=== PATIENT | female | born 1980 | race African-American/Black ===

== ENCOUNTER 2017-11-24 10:14 | Emergency (ER) | payer SELFPAY ==
--- NOTE | 2017-11-24 10:44 | ER Document Report ---
ED Medical Screen (RME) - General Chief Complaint: Vag Bleeding, +preg <12wks Stated Complaint: VAGINAL BLEEDING/PAIN Time Seen by Provider: 11/24/17 10:41 Notes: RME DISCLOSURE I have seen this patient as part of a Rapid Medical Evaluation and, if applicable, placed any initially appropriate orders. The patient will be seen and fully evaluated, including a full history and physical exam, by a provider ( in Main ED or Fast Track) when a room becomes available. 37-year-old female (2 prior stillborns) here with complaints of lower abdominal pain and vaginal bleeding ongoing for the past few days. She states that this all started after she had sex. The pain is intermittent. She does not really have any pain right now, she reports. She denies any dysuria frequency hesitancy. She reports a positive home test late October. She is here because she is worried about a possible miscarriage or ectopic. EXAM No tenderness on exam TRAVEL OUTSIDE OF THE [place] IN LAST 30 DAYS: No - Related Data Allergies/Adverse Reactions: No Known Allergies Allergy (Verified 11/24/17 10:15) Past Medical History - General Last Menstrual Period: 10/12/2017 - Social History Chew tobacco use (# tins/day): No Frequency of alcohol use: None Drug Abuse: None Endocrine Medical History: Denies: Hx Diabetes Mellitus Type 2 Renal/ Medical History: Denies: Hx Peritoneal Dialysis - Immunizations Immunizations up to date: Yes Hx Diphtheria, Pertussis, Tetanus Vaccination: No Physical Exam - Vital signs Vitals: Temp Pulse Resp BP Pulse Ox 98.8 F 81 16 161/98 H 100 11/24/17 10:18 11/24/17 10:18 11/24/17 10:18 11/24/17 10:18 11/24/17 10:18 Course - Vital Signs Vital signs: Temp Pulse Resp BP Pulse Ox 98.1 F 81 16 161/98 H 100 11/24/17 10:37 11/24/17 10:18 11/24/17 10:37 11/24/17 10:37 11/24/17 10:37
[2017-11-24] MEDS ORDERED: IBUPROFEN 800 MG TABLET PO ONE (11:15)
--- NOTE | 2017-11-24 11:16 | ER Document Report ---
HPI - HPI Patient complains to provider of: Pelvic pain, vaginal bleeding Onset/Duration: Gradual Quality of pain: Cramping Pain Level: 5 Context: Patient states that she developed vaginal bleeding over the past 3 days with pelvic pain for the past 2 days. Patient states that she has had both positive and negative home tests and wants to confirm whether or not she is . Patient denies any urinary symptoms. Patient denies any concerns about possible sexually transmitted infection Associated Symptoms: Other - Pelvic pain. denies: Fever, Vomiting Exacerbated by: Denies Relieved by: Denies Similar symptoms previously: Yes Recently seen / treated by doctor: No - ROS ROS below otherwise negative: Yes Systems Reviewed and Negative: Yes All other systems reviewed and negative - CONSTITUTIONAL Constitutional: DENIES: Fever - GASTROINTESTINAL Gastrointestinal: REPORTS: Abdominal Pain. DENIES: Nausea - URINARY Urinary: DENIES: Dysuria, Urgency, Frequency - REPRODUCTIVE LMP: 10/12/2016 Reproductive: REPORTS: Abnormal bleeding / discharge. DENIES: : - MUSCULOSKELETAL Musculoskeletal: DENIES: Back Pain - DERM Skin Color: Normal Skin Problems: None Past Medical History - General Information source: Patient Last Menstrual Period: 10/12/2017 - Social History Smoking Status: Current Some Day Smoker Chew tobacco use (# tins/day): No Smoking Education Provided: Yes Frequency of alcohol use: None Drug Abuse: None Occupation: [employer] Family History: Hypertension Patient has suicidal ideation: No Patient has homicidal ideation: No - Medical History Medical History: Negative Endocrine Medical History: Denies: Hx Diabetes Mellitus Type 2 Renal/ Medical History: Denies: Hx Peritoneal Dialysis Surgical Hx: Negative - Immunizations Immunizations up to date: Yes Hx Diphtheria, Pertussis, Tetanus Vaccination: No Vertical Provider Document - CONSTITUTIONAL Agree With Documented VS: Yes Exam Limitations: No Limitations General Appearance: WD/WN, No Apparent Distress - INFECTION CONTROL TRAVEL OUTSIDE OF THE [place] IN LAST 30 DAYS: No - HEENT HEENT: Atraumatic, Normocephalic - NECK Neck: Normal Inspection, Supple - RESPIRATORY Respiratory: Breath Sounds Normal, No Respiratory Distress O2 Sat by Pulse Oximetry: 100 - CARDIOVASCULAR Cardiovascular: Regular Rate, Regular Rhythm, No Murmur - GI/ABDOMEN Gastrointestinal: Abdomen Soft, Abdomen Non-Tender, No Organomegaly, Normal Bowel Sounds - BACK Back: Normal Inspection. negative: CVA Tenderness-Right, CVA Tenderness-Left - MUSCULOSKELETAL/EXTREMETIES Musculoskeletal/Extremeties: BIANKA BRAN - NEURO Level of Consciousness: Awake, Alert, Appropriate Motor/Sensory: No Motor Deficit - DERM Integumentary: Warm, Dry, No Rash Course - Re-evaluation Re-evalutation: 11/24/17 11:44 Patient with negative test, patient does have hematuria noted on urinalysis. Suspect this is likely contaminant from the vaginal bleeding. Patient declines pelvic examination or STI testing. Patient denies any concerns about UTI. - Vital Signs Vital signs: Temp Pulse Resp BP Pulse Ox 98.1 F 81 16 161/98 H 100 11/24/17 10:37 11/24/17 10:18 11/24/17 10:37 11/24/17 10:37 11/24/17 10:37 - Laboratory Laboratory results interpreted by me: 11/24/17 11:44 Labs- Entire Visit 11/24/17 10:45 Urine Color YELLOW Urine Appearance CLEAR Urine pH 5.0 Ur Specific [place] 1.023 Urine Protein NEGATIVE Urine Glucose (UA) NEGATIVE Urine Ketones TRACE H Urine Blood MODERATE H Urine Nitrite NEGATIVE Urine Bilirubin NEGATIVE Urine Urobilinogen 2.0 H Ur Leukocyte Esterase NEGATIVE Urine WBC (Auto) 1 Urine RBC (Auto) 1 Urine Bacteria (Auto) TRACE Squamous Epi Cells Auto 4 Urine Mucus (Auto) MOD Urine Ascorbic Acid 20 H Urine HCG, Qual NEGATIVE Discharge - Discharge Clinical Impression: Elevated blood pressure reading, Dysmenorrhea Condition: Stable Disposition: HOME, SELF-CARE Instructions: Anti-Inflammatory Medication ([facility]), Dysmenorrhea ([facility]) Additional Instructions: Return immediately for any new or worsening symptoms Followup with your primary care provider, call tomorrow to make a followup appointment Follow-up with a grit removal operator for recheck Forms: Elevated Blood Pressure, Smoking Cessation Education, Return to Work Referrals: MARSHAL ALLEN MD [Primary Care Provider] - Follow up as needed
[2017-11-24 11:18] LABS: APPEARANCE,URINE CLEAR; BILIRUBIN,URINE NEGATIVE (NEGATIVE); COLOR,URINE YELLOW; GLUCOSE, URINE NEGATIVE (NEGATIVE); KETONES,URINE TRACE mg/dL (NEGATIVE)
[2017-11-24 11:19] LABS: LEUKOCYTE ESTERASE,URINE NEGATIVE (NEGATIVE); NITRITE,URINE NEGATIVE (NEGATIVE); PROTEIN,URINE NEGATIVE (NEGATIVE); URINE SPECIFIC GRAVITY 1.023
[2017-11-24 12:07] VITALS: BP 142/87
== END 2017-11-24 12:07 | disposition home or self-care (01) ==
LOC: ER 10:14
DX: R03.0 Elevated blood-pressure reading, without diagnosis of hypertension (principal); N94.6 Dysmenorrhea, unspecified; R10.2 Pelvic and perineal pain; F17.200 Nicotine dependence, unspecified, uncomplicated
CPT/HCPCS: 81001; 81025; 87086; 87088; 87186; 99284

== ENCOUNTER 2018-02-13 21:52 | Emergency (ER) | payer OTHER ==
[2018-02-13 22:34] VITALS: BP 145/99
[2018-02-13] MEDS ORDERED: CYCLOBENZAPRINE HCL 10 MG TABLET PO ONE (23:19)
[2018-02-13] MEDS ORDERED: IBUPROFEN 800 MG TABLET PO ONE (23:19)
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
== END 2018-02-13 23:30 | disposition home or self-care (01) ==
LOC: ER 21:52
DX: M54.2 Cervicalgia (principal); R51 Headache; V43.02XA Car driver injured in collision with other type car in nontraffic accident, initial encounter; Y92.481 Parking lot as the place of occurrence of the external cause; E11.9 Type 2 diabetes mellitus without complications
CPT/HCPCS: 99283

== ENCOUNTER 2019-02-06 03:26 | Emergency (ER) | payer BC, OTHER ==
[2019-02-06 03:37] VITALS: BP 166/103
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
== END 2019-02-06 04:45 | disposition home or self-care (01) ==
LOC: ER 03:26
DX: N89.8 Other specified noninflammatory disorders of vagina (principal); I10 Essential (primary) hypertension
CPT/HCPCS: 99283

== ENCOUNTER 2019-03-28 05:25 | Emergency (ER) | payer BC ==
--- NOTE | 2019-03-28 06:24 | ER Document Report ---
ED General - General Chief Complaint: Vaginal Bleeding Stated Complaint: VAGINAL BLEEDING Time Seen by Provider: 03/28/19 06:07 Primary Care Provider: MARSHAL ALLEN MD [Primary Care Provider] - Follow up as needed Mode of Arrival: Ambulatory Information source: Patient, [facility] Records Notes: 38-year-old female with hypertension presents with complaint of pain with urination and vaginal bleeding. Patient states she is concerned because her bleeding is very light. Her last normal menstrual period was January 25, 2019. She states she is approximately 3 weeks late and started bleeding yesterday very lightly. Patient also complaining of right flank pain that she describes as intermittent. She denies any injury. She states she did take a home test which was negative. Patient is sexually active. She denies any vaginal discharge. She states she does use condoms. TRAVEL OUTSIDE OF THE [place] IN LAST 30 DAYS: No - HPI Onset: Yesterday Onset/Duration: Gradual, Persistent Quality of pain: Pressure Severity: Mild Associated symptoms: denies: Chest pain, Fever, Nausea, Vomiting, Shortness of breath Exacerbated by: Denies Relieved by: Denies Similar symptoms previously: No Recently seen / treated by doctor: No - Related Data Allergies/Adverse Reactions: No Known Allergies Allergy (Verified 03/28/19 05:28) Past Medical History - General Information source: Patient - Social History Smoking Status: Never Smoker Frequency of alcohol use: None Drug Abuse: None Lives with: Family Family History: Reviewed & Not Pertinent, Hypertension Patient has suicidal ideation: No Patient has homicidal ideation: No - Past Medical History Cardiac Medical History: Reports: Hx Hypertension Endocrine Medical History: Denies: Hx Diabetes Mellitus Type 2 Renal/ Medical History: Denies: Hx Peritoneal Dialysis - Immunizations Immunizations up to date: Yes Hx Diphtheria, Pertussis, Tetanus Vaccination: No Review of Systems - Review of Systems Notes: REVIEW OF SYSTEMS: CONSTITUTIONAL : Denies fever, chills, or sweats. Denies recent illness. Denies weight loss, recent hospitalizations. EENT: Denies visual changes, eye pain. Denies sore throat, oral lesions, difficulty swallowing. CARDIOVASCULAR: Denies chest pain. Denies palpitations. Denies lower extremity edema. RESPIRATORY: Denies cough. Denies shortness of breath, wheezing. GASTROINTESTINAL: Denies abdominal pain or distention. Denies nausea, vomiting, or diarrhea. Denies blood in vomitus, stools, or per rectum. Denies black, tarry stools. Denies constipation. GENITOURINARY: Denies difficulty urinating, frequency, blood in urine, or vaginal discharge. MUSCULOSKELETAL: Denies neck pain or stiffness. Denies joint pain or swelling. SKIN: Denies rash, lesions or sores. HEMATOLOGIC : Denies easy bruising or bleeding. LYMPHATIC: Denies swollen glands. NEUROLOGICAL: Denies confusion or altered mental status. Denies loss of consciousness. Denies dizziness or lightheadedness. Denies headache. Denies weakness or paralysis. Denies problems difficulty with ambulation, slurred speech. Denies sensory loss, numbness, or tingling. Denies seizures. PSYCHIATRIC: Denies anxiety or stress. Denies depression, suicidal ideation, or homicidal ideation. Denies visual or auditory hallucinations. Physical Exam - Vital signs Vitals: Temp Pulse BP Pulse Ox 97.8 F 72 166/107 H 99 03/28/19 05:03/28/19 05:03/28/19 05:03/28/19 05:28 - Notes Notes: PHYSICAL EXAMINATION: GENERAL: Well-appearing, well-nourished and in no acute distress. HEAD: Atraumatic, normocephalic. EYES: Pupils equal round and reactive to light, extraocular movements intact, conjunctiva are normal. ENT: Nares patent, oropharynx clear without exudates. Moist mucous membranes. NECK: Normal range of motion, supple without lymphadenopathy LUNGS: Breath sounds clear to auscultation bilaterally and equal. No wheezes rales or rhonchi. HEART: Regular rate and rhythm without murmurs ABDOMEN: Soft, nontender, nondistended abdomen. No guarding, no rebound. No masses appreciated. Female : deferred Musculoskeletal: Normal range of motion, no pitting or edema. No cyanosis. NEUROLOGICAL: Cranial nerves grossly intact. Normal speech, normal gait. Normal sensory, motor exams PSYCH: Normal mood, normal affect. SKIN: Warm, Dry, normal turgor, no rashes or lesions noted. Course - Re-evaluation Re-evalutation: Temp Pulse Resp BP Pulse Ox 97.8 F 72 166/107 H 99 03/28/19 05:03/28/19 05:03/28/19 05:03/28/19 05:28 Laboratory 03/28/19 06:17 Urine Color YELLOW Urine Appearance CLEAR Urine pH 5.0 Ur Specific Seale 1.019 Urine Protein NEGATIVE Urine Glucose (UA) NEGATIVE Urine Ketones NEGATIVE Urine Blood SMALL H Urine Nitrite NEGATIVE Urine Bilirubin NEGATIVE Urine Urobilinogen NEGATIVE Ur Leukocyte Esterase NEGATIVE Urine WBC (Auto) 1 Urine RBC (Auto) 1 Squamous Epi Cells Auto 3 Urine Mucus (Auto) MOD Urine Ascorbic Acid NEGATIVE Urine HCG, Qual NEGATIVE 03/28/19 06:24 38-year-old female presents with dysuria, vaginal bleeding. Last normal menstrual period was January 25, 2019. Patient did take a home test which was negative. She is concerned because she started bleeding yesterday and it is "light". Patient's dysuria also started yesterday. Vital signs reviewed and within normal limits. Patient does not appear toxic or dehydrated. She is in no acute distress. Patient has a benign abdominal exam. 03/28/19 06:58 Patient's urinalysis is not consistent with UTI. Patient's test is negative. I have advised her to follow-up with her FAMILY PRACTICE MD regarding her concern for early menopause and changes in her menstrual cycle. Patient was evaluated and treated as appropriate for the patient's presenting symptoms and complaint, with consideration of any critical or life threatening conditions that may be associated with their obtained history and exam as noted above. All results were discussed with patient. Patient provided the opportunity to ask questions, and express concerns. Patient was educated on treatments based on their presumed diagnosis as noted above. At this time we will discharge the patient with return precautions and follow-up recommendations. Verbal discharge instructions given a the bedside. Medication warnings reviewed. Patient is in agreement with this plan and has verbalized understanding of return precautions. After careful consideration I feel that that patient can be safely discharged from the emergency department, they were advised to followup with a primary care physician in 2-3 days. Dictation on this chart was performed using voice recognition software and may result in unintended grammatical, spelling, syntax or errors. 03/28/19 06:59 - Vital Signs Vital signs: Temp Pulse Resp BP Pulse Ox 97.8 F 72 166/107 H 99 03/28/19 05:28 03/28/19 05:28 03/28/19 05:28 03/28/19 05:28 - Laboratory Laboratory results interpreted by me: 03/28/19 06:17 Urine Blood SMALL H Discharge - Discharge Clinical Impression: Dysuria, Vaginal bleeding Hypertension Qualifiers: Hypertension type: unspecified Qualified Code(s): I10 - Essential (primary) hypertension Condition: Good Disposition: HOME, SELF-CARE Instructions: Vaginal Bleeding ([facility]) Additional Instructions: Your lab work today did not show any evidence of urinary tract infection or . Please follow-up with your FAMILY PRACTICE MD for your concerns regarding the change in your cycle. Please return to the emergency department if you experience abdominal pain, fever greater than 101 or any other symptoms concerning to you. A urine culture was sent due to your symptoms and you will be called if you require an antibiotic. Regarding Blood Pressure: Your blood pressure was noted to be greater than 120/80 at least once in the emergency room today. It is recommended that you follow-up with her primary care physician in the next week for repeat blood pressure check. The Centers for Medicare and Medicaid Services has specific recommendations regarding a person's blood pressure. There are several lifestyle modifications that are recommended in order to help lower your blood pressure. These include: Quitting smoking if you smoke. Reducing the amount of sodium in your diet. Getting regular exercise Limiting alcohol to no more than 2 drinks a day for men and one drink a day for women. Eating a healthy diet, including more fruits and vegetables, low fat dairy products, less saturated and total fat. Losing weight if you are overweight. FOLLOW-UP: Call your doctor's office and let them know your blood pressure was elevated and you were advised to get your blood pressure checked in the above time-line. If you are unable to get into your doctor's office in this time period, you can follow-up with a new physician (I have left the numbers below for a few primary care doctors affiliated with this [facility]) or return to the ER. PRIMARY CARE PHYSICIANS: Dr. Shayy Omalley [address], [place] [address] [phone] Dr Jeff Address: [address] , [place] [address] Dr Allen Address: [address] , [place] [address] Forms: Elevated Blood Pressure Referrals: MARSHAL ALLEN MD [Primary Care Provider] - Follow up in 3-5 days
[2019-03-28 06:30] LABS: APPEARANCE,URINE CLEAR; BILIRUBIN,URINE NEGATIVE (NEGATIVE); COLOR,URINE YELLOW; GLUCOSE, URINE NEGATIVE (NEGATIVE); KETONES,URINE NEGATIVE (NEGATIVE); LEUKOCYTE ESTERASE,URINE NEGATIVE (NEGATIVE); NITRITE,URINE NEGATIVE (NEGATIVE); PROTEIN,URINE NEGATIVE (NEGATIVE); URINE SPECIFIC GRAVITY 1.019; UROBILINOGEN,URINE NEGATIVE mg/dL (<2.0)
[2019-03-28 07:14] VITALS: BP 145/95
== END 2019-03-28 07:14 | disposition home or self-care (01) ==
LOC: ER 05:25
DX: N93.9 Abnormal uterine and vaginal bleeding, unspecified (principal); R30.0 Dysuria; I10 Essential (primary) hypertension; R10.9 Unspecified abdominal pain
CPT/HCPCS: 36415; 81001; 81025; 87086; 99284

== ENCOUNTER 2020-09-04 05:25 | Emergency (ER) | payer BC, OTHER ==
--- NOTE | 2020-09-04 05:58 | ER Document Report ---
ED Dizziness/Weakness - General Chief Complaint: Dizziness Stated Complaint: DIZZY Time Seen by Provider: 09/04/20 05:45 Primary Care Provider: MARSHAL ALLEN MD [Primary Care Provider] - Follow up in 1 week Notes: Patient is a 39-year-old female who presents emergency department with a chief complaint of dizziness. Patient states that her symptoms started about 2 days ago. States that she also is having a hard time sleeping. She attempted to take NyQuil, but did not successfully fall asleep. Patient states that she has not had this before. She was diagnosed with hypertension and was instructed to start blood pressure medication, but the patient has not started the medication. Patient is supposed to be taking losartan/hydrochlorothiazide. TRAVEL OUTSIDE OF THE [place] IN LAST 30 DAYS: No - Related Data Allergies/Adverse Reactions: No Known Allergies Allergy (Verified 03/28/19 05:28) Past Medical History - Social History Smoking Status: Never Smoker Family History: Reviewed & Not Pertinent, Hypertension - Past Medical History Cardiac Medical History: Reports: Hx Hypertension Endocrine Medical History: Denies: Hx Diabetes Mellitus Type 2 Renal/ Medical History: Denies: Hx Peritoneal Dialysis - Immunizations Immunizations up to date: Yes Hx Diphtheria, Pertussis, Tetanus Vaccination: No Review of Systems - Review of Systems Notes: REVIEW OF SYSTEMS: CONSTITUTIONAL : Denies recent illness. Denies recent unintentional weight loss. Denies fever, chills, or sweats. EENT: Denies eye, ear, throat, or mouth pain, discharge, or symptoms. Denies nasal or sinus congestion. CARDIOVASCULAR: Denies chest pain. RESPIRATORY: Denies shortness of breath, cough, congestion, difficulty breathing, or wheezing. GASTROINTESTINAL: Denies nausea, vomiting, and diarrhea. Denies abdominal pain. Denies constipation. GENITOURINARY: Denies difficulty urinating, burning, blood in urine, urgency or frequency. MUSCULOSKELETAL: Denies neck and back pain. Denies joint pain or swelling. SKIN: Denies rash, itchiness, or lesions HEMATOLOGIC : Denies easy bruising or bleeding. LYMPHATIC: Denies swollen, painful, enlarged glands. NEUROLOGICAL: Denies headache. Denies altered mental status. Denies alter ation in speech. See HPI. PSYCHIATRIC: Denies stress, anxiety, alteration in sleep patterns, or de pression. All other systems reviewed and negative. Physical Exam - Vital signs Vitals: Pulse Resp BP Pulse Ox 82 18 159/106 H 100 09/04/20 05:25 09/04/20 05:25 09/04/20 05:25 09/04/20 05:25 - Notes Notes: PHYSICAL EXAMINATION: GENERAL: Appears well, healthy, well-nourished, no acute distress. HEAD: Normocephalic, atraumatic. EYES: PERRL, conjunctiva normal, all extraocular movements intact, sclera nonicteric ENT: Moist mucous membranes. NECK: Supple, no noticeable swelling, redness, rash. Normal range of motion. LUNGS: Equal breath sounds bilaterally and clear to auscultation. No wheezes rales or rhonchi. CARDIOVASCULAR: S1-S2, regular rate, regular rhythm. Radial pulses 2+, normal. ABDOMEN: Normoactive bowel sounds. Soft, nontender, no guarding, no rebound tenderness, and no masses palpated. EXTREMITIES: Normal strength and range of motion, no pitting or edema. No cyanosis. NEUROLOGICAL: Moves all extremities upon command. Strength 5/5 in all extremities. PSYCH: Normal mood, normal affect. SKIN: Warm, dry. No rash, lesions, ulcerations noted. Normal skin turgor. Course - Re-evaluation Re-evalutation: 09/04/20 07:16 Patient reports that she feels better after receiving 1 dose of 12.5 mg of hydrochlorothiazide. Hematology is unremarkable. No leukocytosis or anemia noted. Chemistries are unremarkable. Liver function tests are normal. hCG is negative. 09/04/20 07:39 Urinalysis is unremarkable. Patient does have blood in her urine, but she is currently on her menstrual cycle. Denies any dysuria. Follow-up precautions were given. Verbal discharge instructions were given to the patient. They verbalized understanding. They are stable for discharge. - Vital Signs Vital signs: Temp Pulse Resp BP Pulse Ox 82 10 L 171/98 H 100 09/04/20 05:25 09/04/20 07:10 09/04/20 07:10 09/04/20 07:10 - Laboratory Results Result Diagrams: 09/04/20 05:53 09/04/20 05:53 Laboratory Results Interpreted: 09/04/20 09/04/20 09/04/20 05:53 05:53 06:50 RDW 14.5 H Sodium 134.2 L Glucose 122 H Urine Protein 100 H Urine Ketones TRACE H Urine Blood LARGE H Ur Leukocyte Esterase SMALL H Critical Laboratory Results Reviewed: No Critical Results - Radiology Results Critical Radiology Results Reviewed: No Critical Results - EKG Interpretation by Me Additional EKG results interpreted by me: 09/04/20 06:10 Sinus rhythm. Rate 83. IA 180; QRS 74; QT 380; QTc 447. No ST elevations or depressions noted. No other EKG for comparison. Discharge - Discharge Clinical Impression: Dizziness, Essential hypertension Condition: Stable Disposition: HOME, SELF-CARE Additional Instructions: You were seen today in the emergency department for dizziness. The most likely cause of your dizziness is from your high blood pressure. Take the hydrochlorothiazide as prescribed. Follow-up with Dr. Allen. Let them know you are seen here in the emergency department. Prescriptions: Hydrochlorothiazide [Hydrodiuril 12.5 mg Tablet] 12.5 mg PO QAM #30 capsule Forms: Return to Work Referrals: MARSHAL ALLEN MD [Primary Care Provider] - Follow up in 1 week
[2020-09-04] MEDS ORDERED: LOSARTAN POTASSIUM 50 MG TABLET PO ONE (06:04)
[2020-09-04] MEDS ORDERED: HYDROCHLOROTHIAZIDE 12.5 MG TABLET PO ONE (06:04)
[2020-09-04 06:06] LABS: ABSOLUTE BASOPHILS # (AUTO) 0.1 10^3/uL (0.0-0.2); ABSOLUTE EOSINOPHILS # (AUTO) 0.2 10^3/uL (0.0-0.6); ABSOLUTE LYMPHOCYTES (AUTO) 1.3 10^3/uL (0.5-4.7); ABSOLUTE MONOCYTES (AUTO) 0.3 10^3/uL (0.1-1.4); BASOPHILS % (AUTO) 1.5 % (0-2); EOSINOPHILS % (AUTO) 3.2 % (0-6); HEMATOCRIT 37.3 % (36.0-47.0); HEMOGLOBIN 12.5 g/dL (12.0-15.5); LYMPHOCYTES % (AUTO) 21.6 % (13-45); MEAN CORPUSCULAR HEMOGLOBIN 28.4 pg (27.0-33.4); MEAN CORPUSCULAR HGB CONC 33.4 g/dL (32.0-36.0); MEAN CORPUSCULAR VOLUME 85 fl (80-97); MONOCYTES % (AUTO) 5.3 % (3-13); PLATELET COUNT 195 10^3/uL (150-450); RED BLOOD COUNT 4.39 10^6/uL (3.72-5.28); RED CELL DISTRIBUTION WIDTH 14.5 % (11.5-14.0); SEGMENTED NEUTROPHILS % (AUTO) 68.4 % (42-78); TOTAL CELLS COUNTED % (AUTO) 100 %; WHITE BLOOD COUNT 5.9 10^3/uL (4.0-10.5)
[2020-09-04 06:27] LABS: ALBUMIN 4.2 g/dL (3.5-5.0); ALKALINE PHOSPHATASE 54 U/L (38-126); ANION GAP 7 (5-19); ASPARTATE AMINO TRANSFERASE 16 U/L (14-36); BILIRUBIN,TOTAL 0.7 mg/dL (0.2-1.3); BLOOD UREA NITROGEN 10 mg/dL (7-20); CALCIUM 9.5 mg/dL (8.4-10.2); CARBON DIOXIDE 24 mmol/L (22-30); CHLORIDE 103 mmol/L (98-107); GLUCOSE 122 mg/dL (75-110); TOTAL PROTEIN 7.6 g/dL (6.3-8.2)
[2020-09-04 07:32] LABS: BILIRUBIN,URINE NEGATIVE (NEGATIVE); GLUCOSE, URINE NEGATIVE (NEGATIVE); KETONES,URINE TRACE mg/dL (NEGATIVE); LEUKOCYTE ESTERASE,URINE SMALL (NEGATIVE); NITRITE,URINE NEGATIVE (NEGATIVE); PROTEIN,URINE 100 mg/dL (NEGATIVE); URINE SPECIFIC GRAVITY 1.015; UROBILINOGEN,URINE NEGATIVE mg/dL (<2.0)
[2020-09-04 07:35] LABS: COLOR,URINE RED
[2020-09-04 07:36] LABS: APPEARANCE,URINE TURBID
[2020-09-04 07:39] VITALS: BP 171/98
--- NOTE | 2020-09-04 08:59 | EKG REPORT ---
SEVERITY:- BORDERLINE ECG - SINUS RHYTHM BORDERLINE T WAVE ABNORMALITIES : Confirmed by: Soila Holbrook MD 04-Sep-2020 08:58:07
== END 2020-09-04 07:40 | disposition home or self-care (01) ==
LOC: ER 05:25
DX: R42 Dizziness and giddiness (principal); I10 Essential (primary) hypertension; E11.9 Type 2 diabetes mellitus without complications
CPT/HCPCS: 36415; 80053; 81001; 84703; 85025; 93005; 93010; 99284